=== PATIENT | male | born 1965 | race Caucasian/White ===

== ENCOUNTER 2022-04-03 21:49 | Emergency (ER) | payer OTHER ==
[~2022-04-03] VITALS: Ht 165.1 cm; Wt 63.5 kg
[2022-04-03 22:19] VITALS: BP 150/84
--- NOTE | 2022-04-03 22:23 | NUR ---
TO LOBBY A/W BED AMBUILATORY, SWABS FOR INFLUENZA, COLLINS SENT TO LAB
[2022-04-03] MEDS ORDERED: IBUPROFEN 600 MG TAB PO ONE (22:25)
[2022-04-03] MEDS ORDERED: ACETAMINOPHEN 325 MG TAB PO ONE (22:25)
[2022-04-03] MEDS ORDERED: ACETAMINOPHEN EXTRA STRENGTH 500 MG TAB PO ONE (22:25)
--- NOTE | 2022-04-03 23:00 | NUR ---
SEEN AND EXAMINED BY KATE
[2022-04-03] MEDS ORDERED: ONDA-188 PO (23:28)
[2022-04-04 00:08] VITALS: BP 118/81
== END 2022-04-04 00:08 | disposition home or self-care (01) ==
LOC: MED 21:49
DX: J10.1 Influenza due to other identified influenza virus with other respiratory manifestations (principal); Z20.822 Contact with and (suspected) exposure to COVID-19; Z79.899 Other long term (current) drug therapy
CPT/HCPCS: 99283

== ENCOUNTER 2022-04-06 12:35 | Emergency (ER) | payer OTHER ==
[~2022-04-06] VITALS: Ht 165.1 cm; Wt 59.9 kg
[~2022-04-06 12:35] MED LIST: ONDA-188 PO
--- NOTE | 2022-04-06 12:39 | NUR ---
Luis guevara in [facility] - 04/06/22 at 1248 by MED1 GEETHA NO SHOW.
--- NOTE | 2022-04-06 12:40 | NUR ---
Luis guevara in [facility] - 04/06/22 at 1248 by MED1 CALLED [phone]. NO ANSWERING.
[2022-04-06 12:41] VITALS: BP 116/66
--- NOTE | 2022-04-06 12:49 | NUR ---
BIB SELF C/O COUGH, RUNNY NOSE, 7/10 EARS PAIN , RAMSEY, FEVER ,N/V X 2 WEEKS. SEEN HERE 3 DAYS AGO & FLU B +.
[2022-04-06] MEDS ORDERED: OXYM20SP1 NS (12:59)
[2022-04-06] MEDS ORDERED: OFLO5SOL27 LEFT EAR (12:59)
--- NOTE | 2022-04-06 13:06 | NUR ---
Patient discharged with v/s stable. Written and verbal after care instructions given and explained. Patient verbalized understanding. Ambulatory with steady gait. All questions addressed prior to discharge. Advised to follow up with PMD.
== END 2022-04-06 13:06 | disposition home or self-care (01) ==
LOC: MED 12:35
DX: H66.92 Otitis media, unspecified, left ear (principal); J10.1 Influenza due to other identified influenza virus with other respiratory manifestations; Z79.899 Other long term (current) drug therapy
CPT/HCPCS: 99283